=== PATIENT | female | born 1935 | race Caucasian/White ===

== ENCOUNTER 2021-01-08 11:32 | Inpatient (IN) | payer OTHER, SELFPAY ==
[~2021-01-08] VITALS: Ht 165.1 cm; Wt 81.6 kg
[2021-01-08 11:35] VITALS: BP_SYST 142
--- NOTE | 2021-01-08 11:37 | NUR ---
Patient to ER bed 04 to gown for evaluation. Side rails up.
--- NOTE | 2021-01-08 11:40 | NUR ---
Pt. bib BLS from [facility] with bruising and swelling to left leg, bruising goes from thigh to well below knee, posterior and lateral sides, pt. denies any injury or fall, pain 8/10 with any weight or movement, when still no pain, + Padma's sign, non tender to touch, no increase in temperature to bruised area. Addendum: 01/08/21 at 1314 by EMILY Pt. states first started to notice swelling and bruising thursday
--- NOTE | 2021-01-08 11:46 | NUR ---
ER at bedside examining patient.
--- NOTE | 2021-01-08 12:07 | NUR ---
X-ray at bedside
[2021-01-08 12:46] LABS: BASOPHILS % (AUTO) 0.8 % (0.0-2.0); EOSINOPHILS # (AUTO) 0.1 K/uL (0.0-0.4); HEMATOCRIT 37.9 % (36-48); HEMOGLOBIN 12.4 g/dL (12.0-16.0); LYMPHOCYTES # (AUTO) 0.9 K/uL (1.0-5.5); LYMPHOCYTES % (AUTO) 14.9 % (20.5-51.5); MEAN CORPUSCULAR HEMOGLOBIN 29 pg (27-31); MEAN CORPUSCULAR HGB CONC 33 % (32-36); MEAN CORPUSCULAR VOLUME 88 fL (79.0-98.0); MONOCYTES # (AUTO) 0.7 K/uL (0.0-1.0); MONOCYTES % (AUTO) 10.4 % (1.7-9.3); NEUTROPHILS # (AUTO) 4.6 K/uL (1.8-7.7); NEUTROPHILS % (AUTO) 71.9 % (40.0-70.0); PLATELET COUNT (AUTO) 238 K/uL (130-430); RED BLOOD CELL COUNT(AUTO) 4.33 MIL/uL (4.2-6.2); RED CELL DISTRIBUTION WIDTH 15.4 % (9.0-15.0); WHITE BLOOD COUNT (AUTO) 6.4 K/uL (4.8-10.8)
[2021-01-08 12:58] LABS: ANION GAP 3 (5-15); CALCIUM 8.7 mg/dL (8.4-11.0); CHLORIDE 108 mmol/L (98-107); GLUCOSE 90 mg/dL (70-99); POTASSIUM 3.9 mmol/L (3.5-5.1); SODIUM SERUM 145 mmol/L (136-145); UREA NITROGEN, BLOOD 15 mg/dL (8-21)
[2021-01-08 13:05] LABS: INR 2.7 (0.8-1.2); PROTHROMBIN TIME 27.4 SECS (9.5-12.5)
[2021-01-08 13:09] LABS: ALANINE AMINOTRANSFERASE 16 U/L (12-78); ASPARTATE AMINOTRANSFERASE 12 U/L (10-37); TOTAL BILIRUBIN 0.7 mg/dL (0.0-1.0)
--- NOTE | 2021-01-08 13:17 | NUR ---
Ultrasound at bedside in progress
--- NOTE | 2021-01-08 16:16 | NUR ---
PHONE UPDATE TO PTS. DAUGHTER REINA, PHONE # [phone]
[2021-01-08] MEDS ORDERED: NEU300 PO (16:41)
[2021-01-08] MEDS ORDERED: FOLI-43 PO (16:41)
[2021-01-08] MEDS ORDERED: ESCI20TA PO (16:41)
[2021-01-08] MEDS ORDERED: MELA1TAB29 PO (16:41)
[2021-01-08] MEDS ORDERED: BACL10TA PO (16:41)
[2021-01-08] MEDS ORDERED: LEVE500T9 PO ×2 (16:41→17:18)
[2021-01-08] MEDS ORDERED: LOSA100T3 PO ×2 (16:41→17:18)
--- NOTE | 2021-01-08 17:16 | NUR ---
med rec. pt belonging and notification done
[2021-01-08] MEDS ORDERED: TRIA15CR3 (17:18)
[2021-01-08] MEDS ORDERED: AMOX500T2 PO (17:18)
[2021-01-08] MEDS ORDERED: OMEP20TA20 PO (17:18)
[2021-01-08] MEDS ORDERED: FAMO20TA8 PO (17:18)
[2021-01-08] MEDS ORDERED: ONDA-8 SL (17:18)
[2021-01-08] MEDS ORDERED: HYDR-3927 PO (17:18)
[2021-01-08] MEDS ORDERED: MENT49GE (17:18)
[2021-01-08] MEDS ORDERED: MOM PO (17:18)
[2021-01-08] MEDS ORDERED: CHOL2000 PO (17:18)
[2021-01-08] MEDS ORDERED: BISA10SU65 RC (17:18)
[2021-01-08] MEDS ORDERED: SER25 PO (17:18)
--- NOTE | 2021-01-08 17:26 | NUR ---
Patient will be admitted to care of Dr. Reyes. Admitted to med surg unit. Will go to room 119A. Belongings list completed. Complete and up to date summary report printed. SBAR report given at to Angelika ALANIS with opportunity for questions.
[2021-01-08 18:20] VITALS: BP_SYST 152
[2021-01-08] MEDS ORDERED: MILK OF MAGNESIA 30 ML UDC PO PRN (18:45)
[2021-01-08] MEDS ORDERED: ACETAMINOPHEN 325 MG TABLET PO PRN (18:45)
[2021-01-08] MEDS ORDERED: ONDANSETRON 4 MG ODT TAB PO PRN (18:45)
[2021-01-08] MEDS ORDERED: NALOXONE HCL 0.4 MG/ML AMP (NARCAN) IVP PRN (18:45)
[2021-01-08] MEDS ORDERED: HYDROcodone/ACETAMIN 10-325 MG TAB PO PRN (18:45)
[2021-01-08] MEDS ORDERED: LOSARTAN POTASSIUM 50 MG TABLET (COZAAR) PO ONE (19:15)
[2021-01-08 19:30] VITALS: BP_SYST 143
--- NOTE | 2021-01-08 19:30 | NUR ---
OPENING NOTE PATIENT AWAKE ALERT ORIENTED X3 BREATHING ROOM AIR NO SIGNS OF RESPIRATORY DISTRESS OR PAIN/ IV SITE PATENT AND INTACT PM LH. BED IS LOW AND CALL LIGHTS WITHIN REACH.
--- NOTE | 2021-01-08 19:45 | NUR ---
Note Pt arrived to floor via gurney at 1740 to room. Pt oriented to room and nursing routines and procedures. Pt oriented to call light. Pt ate Regular diet for dinner then Admission assessment was done and completed. Dr Reyes came to bedside at 1830 and assessment done. Orders written and tests completed. Pt stable and no needs noted at this time. Call light within reach.
[2021-01-08] MEDS: CHOLECALCIFEROL (VITAMIN D3) 2,000 UNIT TABLET PO SCH (21:00)
--- NOTE | 2021-01-08 22:18 | NUR ---
DR. ANIL MA PAGED BACK AT THIS TIME, IT WAS COMMUNICATED THAT PATIENT IS REQUESTING TYLENOL 650 PO FOR PAIN, AND THAT THE ORDER IS ONLY FOR PRN FEVER. DR. MA ORDERED TO CHANGE PRN REASON FOR TYLENOL TO MILD PAIN OR FEVER Q6H. ORDER READ BACK, VERIFIED, AND ENTERED. PATIENT AND PRIMARY NURSE MADE AWARE.
[2021-01-08] MEDS: MELATONIN 3 MG TABLET PO SCH (22:48)
[2021-01-08] MEDS: levETIRAcetam 500 MG TABLET PO SCH (22:49)
[2021-01-08] MEDS: GABAPENTIN 300 MG CAPSULE PO SCH (22:51)
[2021-01-08] MEDS: BACLOFEN 10 MG TABLET PO SCH (22:51)
[2021-01-08] MEDS: QUEtiapine FUMARATE 25 MG TABLET PO SCH (22:51)
--- NOTE | 2021-01-09 | NUR ---
PATIENT ASLEEP NO SIGNS OF PAIN OR RESPIRATORY DISTRESS. BED IS LOW AND CALL LIGHTS WITHIN REACH.
[2021-01-09 00:38] VITALS: BP_SYST 147
--- NOTE | 2021-01-09 04:00 | NUR ---
PATIENT IS ASLEEP COMFORTABLE NO SIGNS OF PAIN OR DISTRESS. BED IS LOW AND CALL LIGHT WITHIN REACH.
--- NOTE | 2021-01-09 06:18 | NUR ---
CLOSING NOTE PATIENT IS ALERT ORIENTED X4 NO SIGNS OF PAIN OR RESPIRATORY DISTRESS BREATHING ROOM AIR. IV SITE PATENT AND INTACT AT LEFT HAND. PATIENT AMBULATES TO RESTROOM WITH WALKER STAND BY ASSIST. BED IS LOW AND CALL LIGHT IN REACH.
--- NOTE | 2021-01-09 07:00 | NUR ---
Opening Note Patient found in bed sleeping with complaints or discomfort. call light in reach, bed is locked and in lowest position and two rails are up. safety , fall and aspirations precautions are in place. VS obtain. Discussed plan of care with patient, will continue to monitor.
[2021-01-09 08:00] VITALS: BP_SYST 131
[2021-01-09] MEDS ORDERED: BISACODYL 10 MG/SUPPOSITORY RC PRN (09:00)
[2021-01-09] MEDS ORDERED: ESCITALOPRAM OXALATE 10 MG TABLET PO SCH (09:00)
[2021-01-09] MEDS: CITALOPRAM HYDROBROMIDE 20 MG TABLET PO SCH (09:42)
[2021-01-09] MEDS: FAMOTIDINE 20 MG TABLET PO SCH (09:42)
[2021-01-09] MEDS: GABAPENTIN 300 MG CAPSULE PO SCH ×3 (09:42→21:49)
[2021-01-09] MEDS: levETIRAcetam 500 MG TABLET PO SCH ×2 (09:42→21:50)
[2021-01-09] MEDS: CHOLECALCIFEROL (VITAMIN D3) 2,000 UNIT TABLET PO SCH ×3 (09:43→21:51)
[2021-01-09] MEDS: LOSARTAN POTASSIUM 50 MG TABLET (COZAAR) PO SCH (09:43)
[2021-01-09] MEDS: FOLIC ACID 1 MG TABLET PO SCH (09:43)
[2021-01-09 12:00] VITALS: BP_SYST 132
--- NOTE | 2021-01-09 13:00 | NUR ---
Nursing note patient found eating lunch in bed with no complaints or discomfort. Patient currently waiting for DR Azul to see her. No orders at this time. will continue to monitor.
[2021-01-09 16:00] VITALS: BP_SYST 145
--- NOTE | 2021-01-09 19:16 | NUR ---
Closing note DR Azul at bedside, patient will stay another night and be discharged tomorrow morning per MD. Patient is resting in bed with no complaints, pain or discomfort. all needs met throughout shift. Aspiration, fall and safety precautions in place. Bed is locked and in lowest position, two rails are up and call light in reach.Will endorse to shift production associate.
[2021-01-09 19:30] VITALS: BP_SYST 132
--- NOTE | 2021-01-09 19:30 | NUR ---
OPENING NOTE PATIENT IS AWAKE ALERT ORIENTED X3 COOPERATIVE BREATHING ROOM AIR NO SIGNS OF PAIN OR DISTRESS. IV SITE PATENT AND INTACT LH SALINE LOCK. BED IS LOW AND CALL LIGHT IS WITHIN REACH.
[2021-01-09] MEDS: BACLOFEN 10 MG TABLET PO SCH (21:47)
[2021-01-09] MEDS: QUEtiapine FUMARATE 25 MG TABLET PO SCH (21:48)
[2021-01-09] MEDS: MELATONIN 3 MG TABLET PO SCH (21:50)
[2021-01-10] VITALS: BP_SYST 134
--- NOTE | 2021-01-10 | NUR ---
PATIENT ASLEEP NO SIGNS OF PAIN OR DISTRESS. BED IS LOW AND CALL LIGHT IS IN REACH.
--- NOTE | 2021-01-10 04:00 | NUR ---
PATIENT IS ASLEEP NO SIGNS OF PAIN OR DISTRESS. BEDS LOW CALL LIGHTS IN REACH.
--- NOTE | 2021-01-10 06:24 | NUR ---
CLOSING NOTE PATIENT IS ASLEEP ALERT ORIENTED X4 BREATHING ROOM AIR NO SIGNS OF PAIN OR DISTRESS. IV SITE PATENT AND INTACT LEFT HAND. BED IS LOW AND CALL LIGHT IN REACH. WILL ENDORSE TO NEXT SHIFT [facility] MANAGEMENT.
[2021-01-10 07:58] VITALS: BP_SYST 135
[2021-01-10] MEDS: LOSARTAN POTASSIUM 50 MG TABLET (COZAAR) PO SCH (08:09)
[2021-01-10] MEDS: GABAPENTIN 300 MG CAPSULE PO SCH (08:09)
[2021-01-10] MEDS: FOLIC ACID 1 MG TABLET PO SCH (08:09)
[2021-01-10] MEDS: levETIRAcetam 500 MG TABLET PO SCH (08:10)
[2021-01-10] MEDS: FAMOTIDINE 20 MG TABLET PO SCH (08:10)
[2021-01-10] MEDS: CHOLECALCIFEROL (VITAMIN D3) 2,000 UNIT TABLET PO SCH (08:10)
[2021-01-10] MEDS: CITALOPRAM HYDROBROMIDE 20 MG TABLET PO SCH (08:11)
--- NOTE | 2021-01-10 11:15 | NUR ---
Ambulate with physical therapy using FWW no dizziness.
[2021-01-10 11:21] VITALS: BP_SYST 126
[2021-01-10 12:00] VITALS: BP_SYST 126
--- NOTE | 2021-01-10 13:30 | NUR ---
Discharged jeremy price via private vehicle of jeremy price with all the belongings
== END 2021-01-10 13:30 | DRG 316 ==
LOC: SED 11:32 → SMU 13:45
PROVIDERS: ADMIT Family Medicine; ATTEND Family Medicine
DX: R58 Hemorrhage, not elsewhere classified (principal); I10 Essential (primary) hypertension; E03.9 Hypothyroidism, unspecified; G40.909 Epilepsy, unspecified, not intractable, without status epilepticus; M19.90 Unspecified osteoarthritis, unspecified site; Z20.822 Contact with and (suspected) exposure to COVID-19
CPT/HCPCS: 36415; 73552; 73590-TC; 80053; 85025; 85610-TC; 85730-TC; 87081; 93971; 97116-GP; 97530-GP; 99285

== ENCOUNTER 2024-01-21 09:41 | Inpatient (IN) | payer OTHER, MEDICARE ==
[~2024-01-21] VITALS: Ht 160 cm; Wt 73.0 kg
[2024-01-21 09:41] VITALS: BP_SYST 162; PULSE 66; RESP 18; TEMP 98.1; O2SAT 98
[~2024-01-21 09:41] MED LIST: BACL10TA PO; BISA10SU65 RC; CHOL2000 PO; ESCI20TA PO; FAMO20TA8 PO; FOLI-43 PO; HYDR-3927 PO; LEVE500T9 PO; LOSA-415 PO; MELA1TAB29 PO; MENT49GE; MOM PO; NEU300 PO; OMEP20TA20 PO; ONDA-8 SL; SER25 PO; TRIA15CR3
[2024-01-21 10:36] LABS: BASOPHILS # (AUTO) 0.1 K/uL (0.0-0.2); BASOPHILS % (AUTO) 0.9 % (0.0-2.0); EOSINOPHILS # (AUTO) 0.1 K/uL (0.0-0.4); EOSINOPHILS % (AUTO) 1.7 % (0.0-4.0); HEMATOCRIT 44.9 % (36-48); HEMOGLOBIN 14.6 g/dL (12.0-16.0); LYMPHOCYTES # (AUTO) 1.3 K/uL (1.0-5.5); LYMPHOCYTES % (AUTO) 21.5 % (20.5-51.5); MEAN CORPUSCULAR HEMOGLOBIN 29 pg (27-31); MEAN CORPUSCULAR HGB CONC 33 % (32-36); MEAN CORPUSCULAR VOLUME 90 fL (79.0-98.0); MONOCYTES # (AUTO) 0.6 K/uL (0.0-1.0); MONOCYTES % (AUTO) 10.1 % (1.7-9.3); NEUTROPHILS # (AUTO) 4.1 K/uL (1.8-7.7); NEUTROPHILS % (AUTO) 65.8 % (40.0-70.0); PLATELET COUNT (AUTO) 190 K/uL (130-430); RED BLOOD CELL COUNT(AUTO) 4.97 MIL/uL (4.2-6.2); RED CELL DISTRIBUTION WIDTH 15.4 % (9.0-15.0); WHITE BLOOD COUNT (AUTO) 6.2 K/uL (4.8-10.8)
[2024-01-21 10:59] LABS: ALANINE AMINOTRANSFERASE 12 U/L (12-78); ALBUMIN 3.4 g/dL (3.4-4.8); ANION GAP 8 (5-15); ASPARTATE AMINOTRANSFERASE 11 U/L (10-37); BILIRUBIN,DIRECT 0.1 mg/dL (0.0-0.3); CALCIUM 8.9 mg/dL (8.4-11.0); CARBON DIOXIDE 30 mmol/L (23-29); CHLORIDE 106 mmol/L (98-107); CREATINE KINASE, TOTAL 99 U/L (26-192); CREATININE 0.79 mg/dL (0.55-1.30); GLUCOSE 93 mg/dL (74-106); POTASSIUM 4.2 mmol/L (3.5-5.1); SODIUM SERUM 144 mmol/L (136-145); TOTAL BILIRUBIN 0.5 mg/dL (0.0-1.0); TOTAL PROTEIN, SERUM 6.6 g/dL (6.4-8.3); UREA NITROGEN, BLOOD 15 mg/dL (8-21)
[2024-01-21 11:24] LABS: PROTHROMBIN TIME 10.9 SECS (9.5-12.5)
[2024-01-21] MEDS ORDERED: ESCI20TA38 PO (11:41)
[2024-01-21] MEDS ORDERED: FLUT1BLS14 INH (11:41)
[2024-01-21] MEDS ORDERED: OMEP20CA15 PO (11:41)
[2024-01-21] MEDS ORDERED: LOSA50TA28 PO (11:41)
[2024-01-21] MEDS ORDERED: GABA300T28 PO (11:41)
[2024-01-21] MEDS: ASPIRIN 81 MG TAB.CHEW PO ONE (11:53)
[2024-01-21 14:00] VITALS: BP_SYST 167; PULSE 72; RESP 18; TEMP 98.5; O2SAT 95
[2024-01-21 14:57] VITALS: O2SAT 96
[2024-01-21 15:03] VITALS: BP_SYST 167; PULSE 72; RESP 18; TEMP 98.5
[2024-01-21 16:36] VITALS: BP_SYST 168; PULSE 65; RESP 16; TEMP 97.7; O2SAT 97
[2024-01-21 20:00] VITALS: BP_SYST 133; PULSE 68; RESP 18; TEMP 96.3; O2SAT 96
[2024-01-21] MEDS ORDERED: NALOXONE HCL 0.4 MG/ML AMP (NARCAN) IVP PRN ×2 (22:00)
[2024-01-21] MEDS ORDERED: MILK OF MAGNESIA 30 ML UDC PO SCH (22:00)
[2024-01-21] MEDS ORDERED: HYDROcodone/ACETAMIN 5-325 MG TAB (NORCO/ VICODIN) PO PRN (22:00)
[2024-01-21] MEDS ORDERED: ONDANSETRON HCL 4 MG/2 ML VIAL IVP PRN (22:00)
[2024-01-21] MEDS ORDERED: HYDROcodone/ACETAMIN 10-325 MG TAB PO PRN (22:00)
[2024-01-21] MEDS ORDERED: LORazepam 2 MG/ML VIAL IVP PRN (22:00)
[2024-01-21] MEDS: NORMAL SALINE 5 ML DISP.SYRIN IVF SCH (23:42)
[2024-01-22] VITALS: BP_SYST 145; PULSE 74; RESP 18; TEMP 97.2; O2SAT 95
[2024-01-22] MEDS: ACETAMINOPHEN 325 MG TABLET PO PRN (06:53)
[2024-01-22 07:07] LABS: BASOPHILS % (AUTO) 0.7 % (0.0-2.0); EOSINOPHILS # (AUTO) 0.2 K/uL (0.0-0.4); EOSINOPHILS % (AUTO) 2.6 % (0.0-4.0); HEMATOCRIT 45.4 % (36-48); HEMOGLOBIN 14.9 g/dL (12.0-16.0); LYMPHOCYTES # (AUTO) 1.4 K/uL (1.0-5.5); LYMPHOCYTES % (AUTO) 24.1 % (20.5-51.5); MEAN CORPUSCULAR HEMOGLOBIN 29 pg (27-31); MEAN CORPUSCULAR HGB CONC 33 % (32-36); MEAN CORPUSCULAR VOLUME 90 fL (79.0-98.0); MONOCYTES # (AUTO) 0.6 K/uL (0.0-1.0); MONOCYTES % (AUTO) 9.5 % (1.7-9.3); NEUTROPHILS # (AUTO) 3.8 K/uL (1.8-7.7); NEUTROPHILS % (AUTO) 63.1 % (40.0-70.0); PLATELET COUNT (AUTO) 213 K/uL (130-430); RED BLOOD CELL COUNT(AUTO) 5.07 MIL/uL (4.2-6.2); RED CELL DISTRIBUTION WIDTH 15.3 % (9.0-15.0)
[2024-01-22 07:23] LABS: ALANINE AMINOTRANSFERASE 14 U/L (12-78); ALBUMIN 3.4 g/dL (3.4-4.8); ANION GAP 11 (5-15); ASPARTATE AMINOTRANSFERASE 10 U/L (10-37); CARBON DIOXIDE 27 mmol/L (23-29); CHLORIDE 106 mmol/L (98-107); CREATININE 0.68 mg/dL (0.55-1.30); GLUCOSE 100 mg/dL (74-106); PHOSPHORUS 3.6 mg/dL (2.7-4.5); SODIUM SERUM 144 mmol/L (136-145); TOTAL BILIRUBIN 0.6 mg/dL (0.0-1.0); TOTAL PROTEIN, SERUM 6.8 g/dL (6.4-8.3); UREA NITROGEN, BLOOD 16 mg/dL (8-21)
[2024-01-22 08:10] VITALS: O2SAT 96
[2024-01-22] MEDS ORDERED: TRIAMCINOLONE ACETONIDE 0.025% 80 GM CREAM.GM. TP SCH (09:00)
[2024-01-22] MEDS ORDERED: NON-FORMULARY MEDICATION (Escitalopram Oxalate 1 TAB) PO SCH (09:00)
[2024-01-22] MEDS ORDERED: OMEPRAZOLE Non-Formulary 20 MG CAPSULE.DR PO SCH (09:00)
[2024-01-22] MEDS ORDERED: FLUTICASONE 250 mCg/SALMETEROL 50 mCg DISKUS W.DEV INH SCH (09:00)
[2024-01-22 09:12] VITALS: BP_SYST 163; PULSE 80; RESP 20; TEMP 97.3; O2SAT 98
[2024-01-22] MEDS ORDERED: ASA81 PO (09:44)
[2024-01-22] MEDS: ASPIRIN 81 MG TAB.CHEW PO SCH (10:18)
[2024-01-22] MEDS: CITALOPRAM HYDROBROMIDE 20 MG TABLET PO SCH (10:18)
[2024-01-22] MEDS: LOSARTAN POTASSIUM 50 MG TABLET (COZAAR) PO SCH (10:19)
[2024-01-22 10:20] VITALS: BP_SYST 163; PULSE 80; O2SAT 98
[2024-01-22] MEDS: CHOLECALCIFEROL (VITAMIN D3) 2,000 UNIT TABLET PO SCH (10:20)
[2024-01-22] MEDS: GABAPENTIN 300 MG CAPSULE PO ONE (10:20)
[2024-01-22] MEDS: FOLIC ACID 1 MG TABLET PO SCH (10:20)
[2024-01-22] MEDS: PANTOPRAZOLE SODIUM 40 MG TAB PO SCH (10:21)
[2024-01-22 11:41] VITALS: BP_SYST 160; PULSE 80; RESP 18; TEMP 97.2; O2SAT 98
[2024-01-22] MEDS ORDERED: ALBUTEROL SULFATE 0.083% 2.5 MG/3 ML VIAL.NEB INH SCH (13:00)
[2024-01-22] MEDS ORDERED: GABAPENTIN 300 MG CAPSULE PO SCH (15:00)
[2024-01-22] MEDS ORDERED: BUDESONIDE 0.5 MG/2 ML AMPUL.NEB INH SCH (19:00)
[2024-01-22] MEDS ORDERED: MELATONIN 3 MG TABLET PO SCH (21:00)
[2024-01-22] MEDS ORDERED: QUEtiapine FUMARATE 25 MG TABLET PO SCH (21:00)
== END 2024-01-22 12:05 | disposition home or self-care (01) | DRG 69 ==
LOC: SED 09:41 → STU 11:46
PROVIDERS: ADMIT Preventive Medicine Preventive Medicine/Occupational Environmental Medicine; ATTEND Preventive Medicine Preventive Medicine/Occupational Environmental Medicine
DX: G45.9 Transient cerebral ischemic attack, unspecified (principal); I10 Essential (primary) hypertension; E55.9 Vitamin D deficiency, unspecified; G89.4 Chronic pain syndrome; G40.909 Epilepsy, unspecified, not intractable, without status epilepticus; I48.0 Paroxysmal atrial fibrillation; K21.9 Gastro-esophageal reflux disease without esophagitis; Z98.2 Presence of cerebrospinal fluid drainage device; Z79.01 Long term (current) use of anticoagulants; Z88.2 Allergy status to sulfonamides; F41.9 Anxiety disorder, unspecified; F32.A Depression, unspecified
CPT/HCPCS: 36415; 70450-TC; 71045; 80048; 80053; 80076; 82550; 83605; 83735; 84100; 84484; 85025; 85610; 87081; 93005; 94070; 94760; 97116-GP; 97530-GP; 99285; G0378